=== PATIENT | female | born 1935 | race Two or more races ===

== ENCOUNTER 2018-10-18 09:46 | Observation (INO) | payer MEDICARE, OTHER ==
--- NOTE | 2018-10-18 10:26 | ED ---
Syncope/Near Syncope - HPI Summary HPI Summary: This patient is an 83 year old F brought in by ambulance to [facility] accompanied by and daughter with a chief complaint of syncopal episode lasting 30 seconds that occurred at approximately 0940 this morning. Patient states she lost consciousness upon standing up and did not fall upon LOC because her family held her up. The patient rates the pain 0/10 in severity. Symptoms aggravated by nothing. Symptoms alleviated by nothing. Patient reports pain down lower back into the back of the leg, urinary incontinence, fatigue, and constipation. Patient denies erythema of eyes, sore throat, CP, SOB, abd pain, N /V, hematuria, myalgia, edema, tingling in legs, numbness in legs, dizziness, lightheadedness, palpitations, melena, rash, cough, diaphoresis, and fever, chills. Patient states she was feeling more tired than usual prior to the syncopal episode. Per family, the patient experienced dizziness, diaphoresis, and shallow breathing prior to syncope. Patient states her last bowel movement was on 10/16/2018. Patient states she is travelling from [place]. She states she has sleep apnea , but has not brought them with her on her travels. Per family, patient has previously had a pacemaker placed due to syncopal episodes from low heart rate. Family states this is the first syncopal episode the patient has experienced since her pacemaker placement. Family denies the patient having a history of seizures. 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 Negative CP, SOB, dizziness, lightheadedness, palpitations, melena, cough, diaphoresis, and chills. Frequency: Episodes x___ - 1, Episodes Lasting ____ (in Mins/Days/Weeks/Years) - 30 seconds - Allergies/Home Medications Allergies/Adverse Reactions: Allergies Allergy/AdvReac Type Severity Reaction Status Date / Time Penicillins Allergy Hives/Diff. Verified 10/18/18 10:54 Breathing/I tching Home Medications: Home Medications Amlodipine Besylate [Norvasc] 5 mg PO BEDTIME 10/18/18 [History Confirmed ] Bupropion XL* [Wellbutrin XL *] 150 mg PO DAILY 10/18/18 [History Confirmed ] Lencho/D3/Mag11/Zinc/Stock Mixer/Augusto/Bor [Caltrate 600+D Plus] 1 tab PO 1700 10/18/18 [ History Confirmed 10/18/18] Chlorthalidone TAB* [Hygroton TAB*] 25 mg PO WEEKLY 10/18/18 [History Confirmed 10/18/18] Cholecalciferol TAB* [Vitamin D TAB*] 1,000 unit PO WEEKLY 10/18/18 [History Confirmed 10/18/18] Labetalol TAB* [Trandate TAB*] 200 mg PO BID 10/18/18 [History Confirmed ] Levothyroxine TAB* [Synthroid TAB*] 88 mcg PO QAM 10/18/18 [History Confirmed ] Losartan TAB* [Cozaar TAB*] 100 mg PO DAILY 10/18/18 [History Confirmed 10/18/18 ] Raloxifene HCl [Evista] 60 mg PO 1700 10/18/18 [History Confirmed 10/18/18] Rosuvastatin (NF) [Crestor (NF)] 20 mg PO BEDTIME 10/18/18 [History Confirmed ] hydrALAZINE TAB* [Apresoline TAB*] 100 mg PO BID 10/18/18 [History Confirmed ] PMH/Surg Hx/FS Hx/Imm Hx Previously Healthy: No Endocrine/Hematology History: Reports: Hx Thyroid Disease - Hypothyroidism Cardiovascular History: Reports: Hx Hypercholesterolemia, Hx Hypertension Respiratory History: Reports: Hx Sleep Apnea Neurological History: Reports: Other Neuro Impairments/Disorders - Fainting episodes due to low heart rate treated in Mar 2015 with pacemaker Denies: Hx Seizures - Surgical History Surgery Procedure, Year, and Place: [employer] MRI sure scan pacemaker placed in March of 2015 Infectious Disease History: No Infectious Disease History: Denies: Traveled Outside the [place] in Last 30 Days - Family History Known Family History: Negative: Diabetes - Social History Occupation: Retired Lives: With Family Alcohol Use: None Hx Substance Use: No Substance Use Type: Reports: None Hx Tobacco Use: No Smoking Status (MU): Former Smoker Review of Systems Positive: Fatigue. Negative: Fever, Chills, Skin Diaphoresis Negative: Erythema Negative: Sore Throat Negative: Palpitations, Chest Pain Negative: Shortness Of Breath, Cough Gastrointestinal: Other - Negative melena Positive: Other - Positive constipation. Negative: Abdominal Pain, Vomiting, Nausea Positive: incontinence. Negative: dysuria, hematuria Positive: Other - Positive pain down lower back into the back of the leg. Negative: Myalgia, Edema Negative: Rash Neurological: Other - Negative tingling in legs, lightheadedness, and dizziness Negative: Numbness Physical Exam - Summary Physical Exam Summary: Constitutional: Well-developed, Well-nourished, Alert. (-) Distressed Skin: Warm, Dry HENT: Normocephalic; Atraumatic Eyes: Conjunctiva normal Neck: Musculoskeletal ROM normal neck. (-) JVD, (-) Stridor, (-) Tracheal deviation Cardio: Rhythm regular, rate normal, Heart sounds normal; Intact distal pulses; The pedal pulses are 2+ and symmetric. Radial pulses are 2+ and symmetric. (-) Murmur Pulmonary/Chest wall: Effort normal. (-) Respiratory distress, (-) Wheezes, (-) Rales Abd: Soft, mild L CVA tenderness, (-) Distension, (-) Guarding, (-) Rebound Musculoskeletal: (-) Edema. Pain with active ROM in hip although her ROM is somewhat reserved. No bony tenderness over the hip Lymph: (-) Cervical adenopathy Neuro: Alert, Oriented x3 Psych: Mood and affect Normal Triage Information Reviewed: Yes Vital Signs On Initial Exam: Initial Vitals Temp Pulse Resp BP Pulse Ox 97.4 F 71 16 116/66 96 10/18/18 09:53 10/18/18 09:53 10/18/18 09:53 10/18/18 09:53 10/18/18 09:53 Vital Signs Reviewed: Yes Diagnostics - Vital Signs Vital Signs Temp Pulse Resp BP Pulse Ox 10/18/18 10:17 75 88/84 10/18/18 09:53 97.4 F 71 16 116/66 96 - Laboratory Result Diagrams: 10/18/18 10:44 10/18/18 10:44 Lab Statement: Any lab studies that have been ordered have been reviewed, and results considered in the medical decision making process. - Radiology Chest XR Radiology Interpretation Completed By: Radiologist Summary of Radiographic Findings: CXR reveals, per radiologist, no active cardiopulmonary disease is noted. ED physician has reviewed this radiology report. - CT Brain CT CT Interpretation Completed By: Radiologist Summary of CT Findings: Brain CT reveals, per radiologist, No intracranial mass or hemorrhage is noted. Periventricular lucency consistent with chronic ischemic White matter change is noted. ED physician has reviewed this radiology report. Abdomen and Pelvis CT CT Interpretation Completed By: Radiologist Summary of CT Findings: Abdomen and pelvis CT reveals, per radiologist, Multilevel degenerative disc disease without fracture. No obstructive uropathy is noted. Moderate degenerative changes of both hips are noted. ED physician has reviewed this radiology report. - EKG 1002 Cardiac Rate: NL EKG Rhythm: Sinus Rhythm - [address] Segment: Normal Summary of EKG Findings: An EKG taken at 1002 reveals normal sinus rhythm at 70 BPM with no STEMI. Course/Dx Course Of Treatment: This patient is an 83 year old F brought in by ambulance to [facility] accompanied by and daughter with a chief complaint of syncopal episode lasting 30 seconds that occurred at approximately 0940 this morning. Patient states she lost consciousness upon standing up and did not fall upon LOC because her family held her up. Per family, patient has previously had a pacemaker placed due to syncopal episodes from low heart rate. Family states this is the first syncopal episode the patient has experienced since her pacemaker placement. Physical Exam Findings: Pain with active ROM in hip although her ROM is somewhat reserved. No bony tenderness over the hip. Mild L CVA tenderness. An EKG taken at 1002 reveals normal sinus rhythm at 70 BPM with no STEMI. Brain CT reveals, per radiologist, No intracranial mass or hemorrhage is noted. Periventricular lucency consistent with chronic ischemic White matter change is noted. Abdomen and pelvis CT reveals, per radiologist, Multilevel degenerative disc disease without fracture. No obstructive uropathy is noted. Moderate degenerative changes of both hips are noted. CXR reveals, per radiologist, no active cardiopulmonary disease is noted. Bloodwork and UA obtained. In the ED course the patient was given fluids. Consult with Dr. Alonso (hospitalist) at 1237. She agreed to admit the patient for further evaluation. The patient is agreeable with this plan. - Diagnoses Provider Diagnoses: Syncope - Physician Notifications Discussed Care of Patient With: Katy Alonso Time Discussed With Above Provider: 12:37 Instructed by Provider To: Other - Consult with Dr. Alonso (hospitalist) at 1237. She agrees to admit the patient for further evaluation. Discharge - Sign-Out/Discharge Documenting (check all that apply): Patient Departure - [place] [facility] [place] Received Moderate/Deep Sedation with Procedure: No - Discharge Plan Condition: Stable Disposition: ADMITTED TO [facility] Referrals: No Primary Care Phys,NOPCP [Primary Care Provider] - - Attestation Statements Document Initiated by Scribe: Yes Documenting Scribe: Kimberli Roberts Provider For Whom Scribe is Documenting (Include Credential): Dr. Celestino Mosley MD Scribe Attestation: IKimberli, scribed for Dr. Celestino Mosley MD on 10/18/18 at 1320. Status of Scribe Document: Ready
[2018-10-18] MEDS ORDERED: NS 0.9% 1000 ML** 1,000 ML IV ONE (10:53)
[2018-10-18 10:56] LABS: ABS Basophils 0 10^3/ul (0-0.2); ABS Eosinophils 0 10^3/ul (0-0.6); ABS Lymphocytes 1.3 10^3/ul (1.0-4.8); ABS Monocytes 0.8 10^3/ul (0-0.8); ABS Neutrophils 4.5 10^3/ul (1.5-7.7); ABS Nucleated RBC 0 10^3/ul; Eosinophil % 0.5 %; Hematocrit 38 % (33-41); Hemoglobin 12.7 g/dL (12.0-16.0); Lymphocyte % 19.7 %; Mean Corpuscular HGB Conc 33 g/dL (31-36); Mean Corpuscular Hemoglobin 31 pg (27-31); Mean Corpuscular Volume 94 fL (80-97); Mean Platelet Volume 7.5 fL (7.4-10.4); Nucleated Red Blood Cells % 0.1; Platelet Count 195 10^3/uL (150-450); Red Blood Count 4.05 10^6 /uL (3.70-4.87); Red Cell Distribution Width 13 % (10.5-15); White Blood Count 6.7 10^3/uL (3.5-10.8)
[2018-10-18 11:04] LABS: Activated Partial Thrombo Time 28.2 seconds (26.0-36.3); INR 0.95 (0.77-1.02)
[2018-10-18 11:15] LABS: ALT 16 U/L (7-52); AST 20 U/L (13-39); Albumin 3.7 g/dL (3.2-5.2); Albumin/Globulin Ratio 1.6 (1-3); Alkaline Phosphatase 43 U/L (34-104); Anion Gap 6 mmol/L (2-11); BUN/Creatinine Ratio 24.4 (8-20); Blood Urea Nitrogen 20 mg/dL (6-24); C Reactive Protein < 1.00 mg/L (<8.01); CO2 Carbon Dioxide 30 mmol/L (22-32); Calcium 9.1 mg/dL (8.6-10.3); Chloride 109 mmol/L (101-111); EGFR African American 80.8 (>60); EGFR Non-African American 66.7 (>60); Globulin 2.3 g/dL (2-4); Glucose 120 mg/dL (70-100); Magnesium 2.2 mg/dL (1.9-2.7); Potassium 3.6 mmol/L (3.5-5.0); Sodium 145 mmol/L (135-145)
[2018-10-18 12:35] LABS: TSH (Thyroid Stimulating Horm) 1.28 mcIU/mL (0.34-5.60)
[2018-10-18 12:37] LABS: Urine Appearance Clear; Urine Bilirubin Negative (Negative); Urine Blood Negative (Negative); Urine Color Yellow; Urine Glucose Negative (Negative); Urine Ketones Negative (Negative); Urine Nitrite Negative (Negative); Urine Protein Negative (Negative); Urine Specific Gravity 1.006 (1.010-1.030); Urine Urobilinogen Negative (Negative)
[2018-10-18] MEDS ORDERED: Acetaminophen TAB* 325 MG PO PRN (13:08)
[2018-10-18] MEDS ORDERED: Ondansetron INJ* 2 MG/ML VIAL IV PRN (13:08)
[2018-10-18] MEDS: Enoxaparin(*) 40 MG/0.4 ML SYR SUBCUT SCH (14:31)
[2018-10-18] MEDS: Lactated Ringers 1000 ML Bag* 1,000 ML IV SCH (15:52)
--- NOTE | 2018-10-18 16:48 | HP ---
CC: Dr. Edis Santos, [place], [place] * ADMISSION HISTORY AND PHYSICAL: DATE OF ADMISSION: 10/18/18 PRIMARY CARE PROVIDER: Dr. Edis Santos in [place], [place]. MY ATTENDING WHILE IN THE HOSPITAL: Dr. Katy Curtis.* (DICTATED BY PETER MORTON) CHIEF COMPLAINT: Syncope. HISTORY OF PRESENT ILLNESS: Ms. Wells is an 83-year-old female with past medical history significant for hypertension, pacemaker placement for bradycardia, and depression, who presents to the emergency department after being up from a trip to visit her family from [place] and has been here for a couple of days staying in a hotel. Due to her unfamiliar surroundings, the patient has not been eating and drinking as much for the last several days. The patient also has had decreased appetite and activity for the past several months believed to be due to depression, which she has a lifelong history of. The patient this morning was in her usual state of health and was eating breakfast when she ate an abnormal large amount per her daughter and then stood up and immediately felt woozy, was able to be lowered back to her chair, and then lost consciousness and was out for approximately 2 minutes without abnormal behaviors, but she did lose control of her bladder. The patient then woke up without any continued fatigue or altered consciousness. The patient is on several medications for blood pressure, which she has been taking routinely. The patient has had several episodes of fainting, but none since her pacemaker. The patient has sleep apnea and did not bring her CPAP with her from [place] and did not sleep well at all the night before getting about 3 hours of sleep. The patient denies chest pain, palpitations either now or before the surgery. The patient has no swelling in her legs, no calf tenderness. The patient denies recent illness or changes in her medications. The patient has never had a blood clot before. The patient in the emergency department did complain of pain in her abdomen and lower back, which resolved partially with having a bowel movement. The patient in the emergency department was found to be profoundly orthostatic with her blood pressure dropping to 88/ 50 with standing from 116/66. Due to concern for syncope in a patient with cardiac history, we were asked to evaluate the patient for admission to the hospital. PAST MEDICAL HISTORY: Hypertension; pacemaker for bradycardia; depression; episode of life-threatening low sodium; history of sinus infections; obstructive sleep apnea, on CPAP; osteoporosis; remote history of migraines. PAST SURGICAL HISTORY: Pacemaker placement, artificial tear duct, cataract removal, C-sections, carpal tunnel surgery. MEDICATIONS: 1. Levothyroxine 88 mcg p.o. daily. 2. Losartan 100 mg p.o. daily. 3. Chlorthalidone 25 mg p.o. Friday and Friday. 4. Hydralazine 100 mg p.o. twice daily. 5. Labetalol 200 mg p.o. twice daily. 6. Amlodipine 5 mg p.o. daily. 7. Raloxifene 60 mg p.o. daily. 8. Rosuvastatin 20 mg p.o. daily. 9. Caltrate 1 tab p.o. daily. 10. Vitamin B12 one tab p.o. daily. 11. Vitamin D 1000 units p.o. daily. 12. Alprazolam 0.25 mg p.r.n. at night. The patient has not taken this for a significant amount of time. 13. Bupropion XL 150 mg p.o. daily. ALLERGIES: PENICILLIN. FAMILY HISTORY: The patient's mother of intestinal cancer. The patient's father of old age at approximately 90. The patient has a brother, who at a young age of congenital heart disease. The patient has 4 sisters and another brother, all of whom are alive and well and have no chronic medical conditions that are known. SOCIAL HISTORY: The patient is a never smoker. The patient does not drink alcohol. The patient has never used illicit drugs. 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 The patient is and has 4 children. The patient's surrogate decision makers will be her daughter, Anali Wells, and her , Coonr Wells. Daughter's phone number is [phone]. REVIEW OF SYSTEMS: A 14-point review of systems was reviewed and is negative except as above in the HPI. PHYSICAL EXAMINATION GENERAL: The patient is an 83-year-old female, who appears stated age and sitting comfortably in bed, in no acute distress. VITAL SIGNS: At the time of evaluation, temperature 97.4, pulse rate 70, respiratory rate 14, oxygen saturation 98% on room air, blood pressure 144/78. HEENT: Head: Normocephalic, atraumatic. Sclerae anicteric. No conjunctival injection. Nasal mucosa moist. Oral mucosa moist. No pharyngeal erythema, discharge, or exudate. NECK: Supple, nontender. No lymphadenopathy. No carotid bruits auscultated. No JVD. RESPIRATORY: Clear to auscultation bilaterally. No wheezes, rales, or rhonchi. Good air exchange bilaterally. CARDIAC: Regular rate and rhythm. No clicks, murmurs, gallops, or rubs. Pulses are 2+ in the bilateral dorsalis pedis, posterior tibial, and radial areas. No bilateral lower extremity edema or calf tenderness noted. ABDOMEN: Soft, nontender, nondistended. Bowel sounds present and normoactive in all 4 quadrants. No hepatosplenomegaly. No abdominal bruits auscultated. No hepatojugular reflux. GENITOURINARY: No suprapubic or CVA tenderness. NEURO: Cranial nerves II through XII intact. No focal deficits. Alert and oriented x3. PSYCHIATRIC: Pleasant and cooperative. SKIN: Clean, dry, and intact. No rash. DIAGNOSTIC STUDIES/LAB DATA: White blood cell count 6.7, hemoglobin 12.7, platelet count 195. INR 0.95, aPTT 28.2. Sodium 145, potassium 3.6, chloride 109, carbon dioxide 30, anion gap 6, BUN 20, creatinine 0.82, glucose 120, lactic acid 1.4, calcium 9.1, magnesium 2.2. Bilirubin 0.6, AST 20, ALT 16, alkaline phosphatase 43. Troponin I 0.00. CRP less than 1. Protein 6.0, albumin 3.7, globulin 2.3. TSH 1.28. Urine: Yellow, clear, specific gravity 1.006, otherwise unremarkable. Studies: Electrocardiogram shows paced rhythm, normal axis. No hypertrophy or enlargement. QTc of 448, rate of 70. Chest x-ray read as no active cardiopulmonary disease. Abdomen and pelvis CT read as multilevel degenerative disk disease without fracture. No obstructive uropathy is noted. Mild degenerative changes both hips. Brain CT read as no intracranial mass or hemorrhage is noted, periventricular lucency consistent with chronic small vessel ischemic white matter change. ASSESSMENT AND PLAN: Impression: Ms. Wells is an 83-year-old female with past medical history significant for hypertension, bradycardia with pacemaker, and depression, who presents to the emergency department with 1 episode of syncope lasting approximately 2 minutes this morning. The patient will be admitted to the hospital for further evaluation of her syncope and rehydration. 1. Syncope. The patient's syncope is very likely due to a combination of vasovagal syncope and orthostatic hypotension due to dehydration. The patient has had poor oral intake. The patient is still, however, on chlorthalidone. The patient is also on high dose of labetalol. The patient had this syncope while standing up after a large meal. The patient has had no recent illnesses. The patient has no chest pain, no ischemic EKG changes, and negative troponins. These will continue to be trended. The patient will have a repeat EKG in the morning. Given the patient's pacemaker, we will check an echocardiogram to assess for heart failure, reduced ejection fraction, but this is unlikely to be the cause of the patient's current syncope. The patient does not appear fluid overloaded. The patient recently had a long car trip, is on hormone replacement therapy, and is elderly. We will check a D-dimer. If this is negative, no further workup is needed; if not, we will check a CTA of the chest for assessment for pulmonary embolism, though this is again a low risk. We will interrogate the patient's pacemaker to check for malfunction or other arrhythmia. The patient did lose control of her bladder, but the patient had no postictal phase, no abnormal movements, no history of seizures and this is unlikely. We will not order an EEG. This could be considered outpatient if the patient has recurrent episodes. 2. Hypertension. We will hold the patient's chlorthalidone. As she appears dehydrated, we will give the patient fluids 2 L slowly. We will decrease the patient's hydralazine and labetalol dose, discontinue amlodipine and losartan. We would recommend holding the chlorthalidone at this point until following up with the patient's primary care provider. 3. Depression. The patient has been having worsening symptoms of depression including lack of appetite. The patient should follow up with her neurologist who manages her antidepressants and medication changes should be discussed in the [facility]. The patient is on appropriate medications right now with bupropion. 4. DVT prophylaxis: The patient will be on Lovenox. 5. FEN: The patient will have fluids as above and a heart-healthy diet, caffeine okay. 6. Disposition: The patient will be admitted to observation for syncope. 7. Code status: The patient would like to be a full code. TIME SPENT: Approximately 60 minutes was spent on the admission of this patient , 30 of which was spent [id number] with the patient obtaining history and physical and discussing treatment plan. This plan was discussed with my attending, Dr. Katy Curtis, and she is in agreement. PETER MORTON [id number]/CPS #: [id number] BALTAZAR
[2018-10-18] MEDS: CAL PO SCH (17:29)
[2018-10-18] MEDS: Raloxifene (NF) 60 MG TAB PO SCH (17:29)
[2018-10-18] MEDS: COP PO SCH (17:29)
[2018-10-18] MEDS: ZINC PO SCH (17:29)
[2018-10-18] MEDS: D3 PO SCH (17:29)
[2018-10-18] MEDS: BOR PO SCH (17:29)
[2018-10-18] MEDS: MAG11 PO SCH (17:29)
[2018-10-18] MEDS: MANG PO SCH (17:29)
[2018-10-18] MEDS: hydrALAZINE TAB* 25 MG PO SCH (20:08)
[2018-10-18] MEDS: Labetalol TAB* 100 MG PO SCH (20:08)
--- NOTE | 2018-10-18 20:27 | PN ---
Hospitalist Progress Note Date of Service: 10/18/18 HOSPITALIST ADDENDUM Case reviewed and d/w Po GREEN. Mrs Wells is an 83yo F with PMH of HTN, s/p pacer, depression, VENKATA on CPAP, who presented to ED after a syncopal episode. Labs, EKG, radiology reviewed. Her syncopal episode is likely secondary to orthostatic hypotension secondary to dehydration due to poor PO intake. Agree with current management.
[2018-10-18] MEDS ORDERED: Atorvastatin* 40 MG TAB PO SCH (21:00)
[2018-10-18] MEDS ORDERED: amLODIPine TAB* 5 MG PO SCH (21:00)
[2018-10-19] MEDS ORDERED: NS 0.9% 1000 ML** 1,000 ML IV SCH
[2018-10-19] MEDS: Lactated Ringers 1000 ML Bag* 1,000 ML IV SCH (01:56)
[2018-10-19] MEDS ORDERED: Levothyroxine TAB* 88 MCG TAB PO SCH (06:00)
[2018-10-19 06:19] LABS: ABS Basophils 0 10^3/ul (0-0.2); ABS Eosinophils 0 10^3/ul (0-0.6); ABS Monocytes 0.8 10^3/ul (0-0.8); ABS Neutrophils 3.9 10^3/ul (1.5-7.7); ABS Nucleated RBC 0 10^3/ul; Eosinophil % 0.6 %; Hematocrit 39 % (33-41); Lymphocyte % 29.7 %; Mean Corpuscular HGB Conc 33 g/dL (31-36); Mean Corpuscular Hemoglobin 31 pg (27-31); Mean Corpuscular Volume 94 fL (80-97); Mean Platelet Volume 7.7 fL (7.4-10.4); Nucleated Red Blood Cells % 0; Platelet Count 192 10^3/uL (150-450); Red Blood Count 4.15 10^6 /uL (3.70-4.87); Red Cell Distribution Width 14 % (10.5-15); White Blood Count 6.8 10^3/uL (3.5-10.8)
[2018-10-19 06:39] LABS: BUN/Creatinine Ratio 19.4 (8-20); Calcium 9.3 mg/dL (8.6-10.3); EGFR Non-African American 84.3 (>60); Magnesium 2.1 mg/dL (1.9-2.7); Potassium 3.4 mmol/L (3.5-5.0)
[2018-10-19] MEDS ORDERED: Losartan TAB* 25 MG PO SCH (09:00)
[2018-10-19] MEDS ORDERED: BuPROPion XL* 150 MG TAB.XL PO SCH (09:00)
[2018-10-19] MEDS: Potassium Chlor TAB* 20 MEQ TAB.ER PO SCH ×2 (10:21→13:02)
[2018-10-19] MEDS: Labetalol TAB* 100 MG PO SCH (10:21)
[2018-10-19] MEDS: hydrALAZINE TAB* 25 MG PO SCH (10:22)
[2018-10-19] MEDS: Enoxaparin(*) 40 MG/0.4 ML SYR SUBCUT SCH (14:01)
--- NOTE | 2018-10-19 15:14 | ECHO ---
Patient: MATTHEW CASTANO [facility] Rec#: [id number] : 1935 Date: 10/19/2018 Age: 83y Height: 149.86 cm / 59.0 in Weight: 47.63 kg / 105.0 lbs Sex: F BSA: 1.4 Room#: 432 Admit Date#: 10/18/2018 Type: Inpatient Referring: Po Lester Reading: Teryr Olvera MD [employer]: Katie Barajas [facility] Transthoracic Echocardiogram Indication: Syncope BP: 155/88 HR: 81 Rhythm: NSR Findings History: Syncope,HTN,s/p pacer insert,VENKATA with CPAP rx. Technical Comments: The study quality is good. Completed at 1310. Left Ventricle: The left ventricular chamber size is normal. Posterior wall hypertrophy is observed. Global left ventricular wall motion and contractility are within normal limits. There is normal left ventricular systolic function. The estimated ejection fraction is 55-60%. Abnormal left ventricular diastolic function is observed. Left Atrium: The left atrial chamber size is normal. Right Ventricle: The right ventricular cavity size is normal. The right ventricular global systolic function is normal. The septum has abnormal paradoxical motion consistent with RV pacemaker. A pacemaker wire is visualized in the right ventricle. Right Atrium: The right atrial cavity size is normal. A pacemaker wire is visualized in the right atrium. Aortic Valve: The aortic valve is trileaflet. There is no evidence of aortic regurgitation. There is no evidence of aortic stenosis. Mitral Valve: The mitral valve leaflets are mildly thickened. There is trace to mild mitral regurgitation. There is no evidence of mitral stenosis. Tricuspid Valve: The tricuspid valve leaflets are normal. There is mild tricuspid regurgitation. There is evidence of borderline pulmonary hypertension. There is no tricuspid stenosis. Pulmonic Valve: The pulmonic valve appears normal. There is mild pulmonic regurgitation. There is no pulmonic stenosis. Pericardium: The pericardium appears normal. Aorta: The ascending aorta is not well visualized. There is no dilatation of the aortic arch. There is no dilation of the aortic root. Pulmonary Artery: The main pulmonary artery appears normal. Venous: The inferior vena cava appears normal in size. There is a greater than 50% respiratory change in the inferior vena cava dimension. Conclusions Global left ventricular wall motion and contractility are within normal limits. There is normal left ventricular systolic function. The estimated ejection fraction is 55-60%. The right ventricular global systolic function is normal. A pacemaker wire is visualized in the right ventricle. There is no evidence of aortic stenosis. There is trace to mild mitral regurgitation. There is mild tricuspid regurgitation. There is evidence of borderline pulmonary hypertension. The pericardium appears normal. The ascending aorta is not well visualized. Measurements Name Value Normal Range RVIDd (AP) 2D 3 cm (0.9 - 2.6) RVDdMajor (2D) 2.4 cm (2.2 - 4.4) RAd ISD 4CH 4.8 cm (3.4 - 4.9) RA (A4C)W 3.2 cm (2.9 - 4.6) IVSd (2D) 1 cm (0.6 - 1) LVPWd (2D) 1.1 cm (0.6 - 1) LVIDd (2D) 3.7 cm (3.6 - 5.4) LVIDs (2D) 2.8 cm - LV FS (2D) 24 % (25 - 45) Aortic Annulus 1.6 cm (1.4 - 2.6) Ao root diameter (2D) 2.9 cm (2.1 - 3.5) Aortic arch 1.8 cm (1.8 - 3.4) Descending Ao 0.6 cm - LA dimension (AP) 2D 3.6 cm (2.3 - 3.8) LAd ISD 4CH 4.2 cm (2.9 - 5.3) LA ISD 4CH W 3.2 cm (2.5 - 4.5) Name Value Normal Range LA ESV SP 4CH (A/L) 36 ml - LA ESV SP 2CH (A/L) 51 ml - LA ESV BP (A/L) 47 ml - LA ESV BP (A/L) index 33 ml/m2 - LA ESV SP 4CH (MOD) 33 ml - LA ESV SP 2CH (MOD) 47 ml - Name Value Normal Range MV E-wave Vmax 0.7 m/sec - MV deceleration time 204 msec - MV A-wave Vmax 0.9 m/sec - MV E:A ratio 0.08 ratio - LV septal e' Vmax 0.07 m/sec - LV lateral e' Vmax 0.09 m/sec - LV E:e' septal ratio 10 ratio - LV E:e' lateral ratio 7.78 ratio - Name Value Normal Range AV Vmax 1.2 m/sec - AV VTI 25.1 cm - AV peak gradient 5.9 mmHg - AV mean gradient 2.92 mmHg - LVOT Vmax 1 m/sec - LVOT VTI 21.3 cm - LVOT peak gradient 3.71 mmHg - LVOT mean gradient 1.59 mmHg - Name Value Normal Range TR Vmax 2.7 m/sec - TR peak gradient 30 mmHg - RAP 3 mmHg - RVSP 33 mmHg - IVC diameter 1.8 cm - Name Value Normal Range PV Vmax 0.8 m/sec - PV peak gradient 2.65 mmHg -
[2018-10-19 15:39] VITALS: BP 141/84
[2018-10-19] MEDS: ZINC PO SCH (15:39)
[2018-10-19] MEDS: MANG PO SCH (15:39)
[2018-10-19] MEDS: COP PO SCH (15:39)
[2018-10-19] MEDS: Raloxifene (NF) 60 MG TAB PO SCH (15:39)
[2018-10-19] MEDS: BOR PO SCH (15:39)
[2018-10-19] MEDS: CAL PO SCH (15:39)
[2018-10-19] MEDS: MAG11 PO SCH (15:39)
[2018-10-19] MEDS: D3 PO SCH (15:39)
--- NOTE | 2018-10-20 07:55 | DS ---
CC: Dr. Edis Santos* DISCHARGE SUMMARY: DATE OF ADMISSION: 10/18/18 DATE OF DISCHARGE: 10/19/18 PRIMARY CARE PROVIDER: Dr. Edis Santos, [place], [place]. ATTENDING PHYSICIAN: Dr. Anatoliy Perry* (dictation by Heaven Ochoa NP). PRIMARY DIAGNOSES: 1. Syncope. 2. Hypertension. SECONDARY DIAGNOSES: 1. Depression. 2. Pacemaker for bradycardia. 3. Low sodium. 4. History of sinus infection. 5. Sleep apnea. 6. Osteoporosis. 7. Migraines. CONSULTATIONS WHILE IN THE HOSPITAL: No consultation. PROCEDURES WHILE IN THE HOSPITAL: No procedures. STUDIES WHILE IN THE HOSPITAL: 1. EKG: Impression: Atrial paced complexes. 2. Chest x-ray: Impression: No active cardiopulmonary disease is noted. 3. Abdomen/pelvis CT: Impression: Multilevel degenerative disc disease without fracture. No obstructive uropathy noted. Mild degenerative changes to both hips were noted. 4. Brain CT: Impression: No intracranial mass or hemorrhage is noted. Periventricular lucency consistent with chronic white matter changes noted. 5. Transthoracic echocardiogram: Impression: Global left ventricular wall motion and contractility are within normal limits. Normal left ventricular systolic function. Estimated ejection fraction is 55% to 60%. Right ventricular global systolic function is normal. Pacemaker was visualized in the right ventricle. No evidence of aortic stenosis. Tlozm-ys-cood mitral regurgitation. Mild tricuspid regurgitation. Evidence of borderline pulmonary hypertension. Pericardium appears normal. Ascending aorta is not well visualized. DISCHARGE HOME MEDICATIONS: New home medications: No new home medications. Changed home medications: 1. Labetalol 200 mg p.o. b.i.d. was changed to labetalol 100 mg p.o. b.i.d. 2. Hydralazine 100 mg p.o. b.i.d. was changed to hydralazine 50 mg p.o. b.i.d. Discontinued home medications: 1. Chlorthalidone. 2. Amlodipine. 3. Losartan. Continued home medications: 1. Vitamin D 1000 units p.o. weekly. 2. Crestor 20 mg p.o. at bedtime. 3. Caltrate 600 plus D tablet 1 tab p.o. daily. 4. Evista 60 mg p.o. daily. 5. Bupropion 150 mg p.o. daily. 6. Levothyroxine 88 mcg p.o. daily. HISTORY OF PRESENT ILLNESS/HOSPITAL COURSE: Ms. Wells is an 83-year-old female with a past medical history significant for hypertension, pacemaker for bradycardia, depression, hyponatremia, VENKATA; who presented to the emergency department on 10/18/18 after a syncopal episode. Please see history and physical dictated by PETER Donahue, for complete summary of events leading up to this hospitalization, but in short, the patient was visiting here from [place] and due to new surroundings had depression. She was not eating and drinking as much. She has also a decrease in appetite and activities for the past several months due to depression. She is also noted to have sleep apnea, but not compliant with her CPAP as she did not bring it with her from [place]. While in the emergency department, the patient had workup, which consisted of imaging, EKG, labs. Given her and the family's report of events leading up to syncope it was suspected that the patient's syncope is very likely due to combination of vasovagal syncope and orthostatic hypotension due to dehydration secondary to poor oral intake. In addition, the patient was noted to be on chlorthalidone and high doses of labetalol and hydroxyzine. Given these findings, the patient was admitted to telemetry for further evaluation. While inpatient, her telemetry was unremarkable and she was noted to be atrial paced. The patient had an echocardiogram, which was also unremarkable. The patient's pacemaker was interrogated and no events noted around the time of syncopal episode. With the reduction in her labetalol and hydralazine in addition to holding her chlorthalidone and providing her with fluid hydration, the patient's blood pressure responded nicely. She was initially in the 80s to one-teens systolically on admission and now is 130 to 140. The patient also had orthostatic vital signs, which were unremarkable. The patient reports today that she feels ready for discharge. The patient's family reports they feel safe taking her home as she is at her baseline. The patient is stable for discharge home today. REVIEW OF SYSTEMS: The patient reports decrease in appetite recently. The patient denies fever. The patient denies weight loss. Cardiac: No chest pain , no palpitations, no shortness of breath, cough, wheezing. ENT: The patient denies sore throat, ear pain, difficulty swallowing. Abdomen: The patient denied abdominal pain, diarrhea, nausea. Musculoskeletal: The patient denies joint or muscle pain. Skin: The patient denies rashes. Neuro: The patient denies dizziness, weakness, visual changes. PHYSICAL EXAMINATION: General: Ms. Wells is an 83-year-old female who is sitting in the chair. She appears in no acute distress, appears stated age. Vital signs: Temp 97.3, H and HR 73, RR 16, O2 sat 98% on room air, BP 141/84. HEENT: PERRLA. EOMs intact. Oral mucosa is moist without lesion. Posterior pharynx is clear. Oral mucosa is moist without lesions. Neck: Supple. Respiratory: Symmetrical chest expansion. No accessory muscle use. Lungs are clear to auscultation. No wheezes, rubs, or rhonchi. Good aeration. Cardiac: S1, S2 present. No murmurs, rubs, or gallops. Regular rate and rhythm. Abdomen: Abdomen is soft and nontender. Bowel sounds x4. Extremities: No clubbing or cyanosis. No edema. Pedal pulses 2+ bilaterally. Musculoskeletal: No pain or deformities. Skin: Grossly intact without lesions. Neuro: Cranial nerves II through XII are grossly intact. Coordination is intact. Sensation is intact. Motor strength is 5/5 in the upper and lower extremities bilaterally. LABORATORY DATA: WBC 6.8, hemoglobin 13.0, hematocrit 39, platelets 192. Chemistry, sodium 134, potassium 3.4, chloride 108, carbon dioxide 28, BUN 13, creatinine 0.67. Hemoglobin A1c 5.9. DISCHARGE PLAN/FOLLOWUP: 1. Syncope. As mentioned in the HPI, it was suspected that the patient's syncopal was very likely due to a combination of vasovagal syncope and orthostatic hypotension secondary to poor oral intake and dehydration. The patient's workup had improvement with a decrease in medications and initiation of IV fluids supports this diagnosis. The patient will be discharged with a lower dose of labetalol and hydralazine. The patient will also be educated to hold her chlorthalidone, amlodipine, and losartan until she follows up with her container shop welder. I discussed this with the patient's daughter who will set up an appointment for the patient to see her container shop welder and primary care at the end of this week. They also discussed increasing oral intake including p.o. fluid in the form of water or an electrolyte drink. 2. Hypertension. As mentioned above, we will discharge the patient and instruct her to hold chlorthalidone, losartan, amlodipine. We will continue the patient's hydralazine and labetalol at lower doses until she can follow up with her primary care and container shop welder. I have educated the family and the patient at length about the importance of holding these medications, but also was following up with her container shop welder and primary care as it is it vital to avoid hypotension given her syncope, but also to avoid hypertension given the complications related to that. 3. Depression. The patient reports worsening depression, which has led to lack of appetite. The patient should follow up with her neurologist who manages her antidepressant medications and changes to be made if needed. The patient should also consider therapy. 4. Obstructive sleep apnea. The patient and daughter admit that the patient is not compliant with the use of her CPAP. We discussed risks of untreated sleep apnea and the patient and daughter are agreeable to be more consistent with CPAP use. 5. Pacemaker for bradycardia. As mentioned in the HPI, the patient's pacemaker was interrogated and no events were noted at that time of syncope. I will encourage the patient to follow up with her container shop welder and have her pacemaker interrogated regularly. 6. Followup: As mentioned above, the daughter has scheduled outpatient follow up with her container shop welder and primary care in [place] at the end of this week. 7. Education: The patient and family were educated on new or worsening symptoms and when to return to the nearest emergency department. All stated understanding. This a summarized report of the complex medical history and hospital stay. For further details please see the entire medical record. TIME SPENT: Approximately 40 minutes was spent on this discharge, greater than half the time was spent [id number] with the patient discussing discharge plans and instructions. HEAVEN OCHOA, ERIKA [id number]/[facility] #: [id number] BALTAZAR
== END 2018-10-19 16:24 | disposition home or self-care (01) ==
LOC: ED 09:46 → MEDTELE 13:08
PROVIDERS: ADMIT Internal Medicine; ATTEND Student in an Organized Health Care Education/Training Program
DX: R55 Syncope and collapse (principal); I10 Essential (primary) hypertension; F32.9 Major depressive disorder, single episode, unspecified; Z95.0 Presence of cardiac pacemaker; R00.1 Bradycardia, unspecified; E87.1 Hypo-osmolality and hyponatremia; G47.30 Sleep apnea, unspecified; M81.0 Age-related osteoporosis without current pathological fracture; G43.909 Migraine, unspecified, not intractable, without status migrainosus; Z87.09 Personal history of other diseases of the respiratory system; Z88.0 Allergy status to penicillin; Z79.899 Other long term (current) drug therapy
CPT/HCPCS: 36415; 70450; 71045; 74176; 80048; 80053; 80061; 81003; 83036; 83605; 83735; 84443; 84484; 85025; 85379; 85610; 85730; 86140; 93005; 93306; 96361; 96372; 99285; A9270-GY; G0378